=== PATIENT | female | born 1975 | race Caucasian/White ===

== ENCOUNTER → 2017-02-06 | Outpatient (CLI) | payer OTHER ==
[2016-03-11 07:38] VITALS: BP 128/93
[2017-02-06 07:49] LABS: BASO # 0.2 x10^3/uL (0.0-0.2); BASO % 2 % (0-3); EOS % 2 % (0-3); HEMATOCRIT 38.6 % (36.0-47.0); HEMOGLOBIN 12.8 g/dL (12.0-15.5); LYMPH # 3.8 x10^3/uL (1.0-4.8); LYMPH % 33 % (24-48); MEAN CORPUSCULAR HEMOGLOBIN 29 pg (25-35); MEAN CORPUSCULAR HGB CONC 33 g/dL (31-37); MEAN CORPUSCULAR VOLUME 87 fL (79-100); MONO % 8 % (0-9); NEUT % 55 % (31-73); PLATELET COUNT 329 x10^3/uL (140-400); RED BLOOD COUNT 4.43 x10^6/uL (3.50-5.40); RED CELL DISTRIBUTION WIDTH 14.3 % (11.5-14.5); WHITE BLOOD COUNT 11.5 x10^3/uL (4.0-11.0)
[2017-02-06 08:09] LABS: ALBUMIN 3.6 g/dL (3.4-5.0); CALCIUM 8.9 mg/dL (8.5-10.1); CREATININE 0.9 mg/dL (0.6-1.0); POTASSIUM 3.7 mmol/L (3.5-5.1); TOTAL BILIRUBIN 0.2 mg/dL (0.2-1.0); TOTAL PROTEIN 7.2 g/dL (6.4-8.2)
[2017-02-06 08:10] LABS: CHOLESTEROL/HDL RATIO 3.8
--- NOTE | 2017-02-06 08:58 | RAD ---
Right knee, 3 views, 02/06/2017: History: Acute pain No fracture or dislocation is identified. There is only minimal marginal spurring medially. No joint effusion is evident. IMPRESSION: No acute right knee abnormality is detected.
[2017-02-06 12:18] LABS: TESTOSTERONE TOTAL 8 ng/dL (8-48)
== END | disposition home or self-care (01) ==
LOC: LAB 07:30
PROVIDERS: ATTEND Physician Assistant Medical
DX: Z00.00 Encounter for general adult medical examination without abnormal findings (principal); F33.41 Major depressive disorder, recurrent, in partial remission; E66.9 Obesity, unspecified; Z13.220 Encounter for screening for lipoid disorders; Z13.1 Encounter for screening for diabetes mellitus; M25.561 Pain in right knee
CPT/HCPCS: 36415; 73562; 80053; 80061; 84403; 84443; 85027

== ENCOUNTER → 2017-02-24 | Outpatient (CLI) | payer OTHER ==
[2016-03-11 07:38] VITALS: BP 128/93
--- NOTE | 2017-02-24 16:07 | RAD ---
EXAM: Bilateral digital screening mammogram. HISTORY: 42-year-old female presents for screening mammography. TECHNIQUE: Full field digital craniocaudal and mediolateral oblique images of both breasts were obtained. Computer aided detection was applied. COMPARISON: There is no prior study for comparison. This exam serves as a baseline mammogram. FINDINGS: Breast parenchymal density: Level C - Heterogeneously dense. There is focal asymmetry with suggestion of architectural distortion within the lateral left breast at mid depth on the craniocaudal projection. There is no correlate on the mediolateral oblique projection, suggesting possible summation artifact. There is nodularity within the 11:00 posterior aspect of the right breast, the appearance of which favors an intramammary lymph node. There is also nodularity within the slightly medial anterior left breast. IMPRESSION: BI-RADS Category 0: Needs additional imaging. Further evaluation with a true lateral view and spot compression view to assess focal asymmetry within the lateral left breast and bilateral breast sonography to assess areas of nodularity is recommended. The patient will be contacted to return for additional imaging. Note is made that dense breast parenchyma limits the sensitivity of mammography. Mammography is a sensitive method for finding small breast cancers, but it does not detect them all and is not a substitute for careful clinical examination. A negative mammogram does not negate a clinically suspicious finding and should not result in delay in biopsying a clinically suspicious abnormality. "Our facility is accredited by the [employer] Mammography [employer]."
== END | disposition home or self-care (01) ==
LOC: MAMMO 09:50
PROVIDERS: ATTEND Family Medicine
DX: Z12.31 Encounter for screening mammogram for malignant neoplasm of breast (principal)
CPT/HCPCS: G0202; 77067

== ENCOUNTER → 2017-03-04 | Outpatient (CLI) | payer OTHER ==
[2016-03-11 07:38] VITALS: BP 128/93
--- NOTE | 2017-03-04 13:10 | RAD ---
EXAM: DIGITAL DIAGNOSTIC LT, BREAST BILATERAL. HISTORY: Abnormal screening mammogram. COMPARISON: Mammogram 02/24/2017. FINDINGS: Digital mammography was performed. Spot compression view of the lateral left breast in CC projection was obtained as well as true lateral view of left breast. The spot compression view demonstrates no evidence of architectural distortion. Breast parenchyma appears compressible. To evaluate additional abnormalities identified on comparison mammogram, ultrasound imaging was performed. Ultrasound imaging was performed by chemistry technologist. Ultrasound imaging was performed of the periareolar left breast. In the left breast at 10:00, 2 cm nipple, there is a small cyst which measures 1.1 cm in maximum dimension and corresponds to the mammographic abnormality. Ultrasound imaging of the right breast was performed in the upper outer quadrant including near the axilla. A trilaminar lymph node measuring up to 3 cm maximum dimension is seen near the right axilla, although it is thought unlikely to represent the mammographic abnormality. Reviewing the mammogram, it is likely that the abnormality was caused by a small lymph node as on the CC view as there does appear to be a well-defined hilar notch. IMPRESSION: 1. Left breast cyst at 10:00, 2 cm from nipple. Right intraparenchymal lymph node. 2. No mammographic or sonographic evidence of malignancy. Recommend return to annual screening. BI-RADS CATEGORY: 2 BENIGN FINDING(S) RECOMMENDED FOLLOW-UP: 12M 12 MONTH FOLLOW-UP PQRS compliance statement: Patient information was entered into a reminder system with a target due date for the next mammogram. Mammography is a sensitive method for finding small breast cancers, but it does not detect them all and is not a substitute for careful clinical examination. A negative mammogram does not negate a clinically suspicious finding and should not result in delay in biopsying a clinically suspicious abnormality. "Our facility is accredited by the [employer] Mammography [employer]."
== END | disposition home or self-care (01) ==
LOC: MAMMO 12:03
PROVIDERS: ATTEND Family Medicine
DX: R92.8 Other abnormal and inconclusive findings on diagnostic imaging of breast (principal)
CPT/HCPCS: 76641; G0206; 77065

== ENCOUNTER → 2017-08-29 | Outpatient (CLI) | payer OTHER ==
[2016-03-11 07:38] VITALS: BP 128/93
[2017-08-29 07:30] LABS: BASO # 0.1 x10^3/uL (0.0-0.2); BASO % 1 % (0-3); EOS % 2 % (0-3); HEMATOCRIT 38.1 % (36.0-47.0); HEMOGLOBIN 12.7 g/dL (12.0-15.5); LYMPH # 3.4 x10^3/uL (1.0-4.8); LYMPH % 30 % (24-48); MEAN CORPUSCULAR HEMOGLOBIN 29 pg (25-35); MEAN CORPUSCULAR HGB CONC 33 g/dL (31-37); MEAN CORPUSCULAR VOLUME 86 fL (79-100); MONO % 7 % (0-9); NEUT % 60 % (31-73); PLATELET COUNT 336 x10^3/uL (140-400); RED BLOOD COUNT 4.46 x10^6/uL (3.50-5.40); RED CELL DISTRIBUTION WIDTH 14.4 % (11.5-14.5); WHITE BLOOD COUNT 11.6 x10^3/uL (4.0-11.0)
[2017-08-29 08:00] LABS: ALBUMIN 3.5 g/dL (3.4-5.0); ALBUMIN/GLOBULIN RATIO 0.9 (1.0-1.7); CALCIUM 8.7 mg/dL (8.5-10.1); CREATININE 0.7 mg/dL (0.6-1.0); GFR 92.2; POTASSIUM 3.7 mmol/L (3.5-5.1); TOTAL BILIRUBIN 0.3 mg/dL (0.2-1.0); TOTAL PROTEIN 7.3 g/dL (6.4-8.2)
[2017-08-29 08:02] LABS: CHOLESTEROL/HDL RATIO 3.4
[2017-08-29 08:14] LABS: FREE T4 0.99 ng/dL (0.76-1.46)
== END | disposition home or self-care (01) ==
LOC: LAB 07:09
PROVIDERS: ATTEND Physician Assistant Medical
DX: F32.81 Premenstrual dysphoric disorder (principal); E03.9 Hypothyroidism, unspecified
CPT/HCPCS: 36415; 80053; 80061; 84439; 84443; 85025

== ENCOUNTER → 2021-10-02 | Outpatient (CLI) | payer OTHER ==
[2016-03-11 07:38] VITALS: BP 128/93
--- NOTE | 2021-10-02 17:43 | RAD ---
Study: MG Digital Screen 2d, Bilat Mammo History: Routine screening. Comparison: Most recently on 03/04/2017. Correlation is also made to a screening mammogram report from 03/23/2019 but the images are not available for review. Technique: Routine 2D digital mammogram views were obtained bilaterally. Interpretation was assisted with the use of computer-aided detection. Findings: Breast Tissue Density C : The breasts are heterogeneously dense, which may obscure small masses. There are no dominant masses, suspicious microcalcifications, or architectural distortion. A few asy mmetries/masses, some of which likely represent cysts, were present on the prior. IMPRESSION: No mammographic evidence of malignancy. Recommend screening mammography in one year. Note is made jia t given breast density, tomosynthesis would be useful to improve the sensitivity of mammography. BI-RADS category 2: Benign findings. Patient information is entered into the reminder system with a target due date for the next screening mammogram. "Our facility is accredited by the [employer] Mammography [employer]." Electronically signed by: ARMEN IQBAL MD (10/02/2021 5:41 PM) [id number]
== END ==
LOC: MAMMO 15:04
PROVIDERS: ATTEND Physician Assistant Medical
DX: Z12.31 Encounter for screening mammogram for malignant neoplasm of breast (principal)
CPT/HCPCS: 77067